=== PATIENT | female | born 1995 ===

== ENCOUNTER 2017-03-02 04:10 | Emergency (ER) | payer OTHER ==
[2017-03-02 05:14] LABS: ABSOLUTE NEUTROPHIL COUNT 6.2 K/mm3 (1.8-7.7); BASO % 0.4 % (0.2-1.0); EOS # 0.1 (0.0-0.5); EOS % 1.3 % (0.9-2.9); HEMATOCRIT 42.2 % (37.0-47.0); HEMOGLOBIN 13.3 gm/l (12.0-16.0); IMM NEUT% 0.1 % (0-1); LYMPH # 1.9 (1.0-4.8); LYMPH % 21.6 % (15-45); MEAN CELL VOLUME 85.9 fl (81.0-99.0); MEAN CORPUSCULAR HEMOGLOBIN 27.1 pg (27.0-31.0); MEAN CORPUSCULAR HGB CONC 31.5 g/dl (33.0-37.0); MEAN PLATELET VOLUME 9.2 fl (7.4-10.4); MONO # 0.4 (0.0-0.8); MONO % 4.9 % (4-12); NEUT % 71.7 % (43-75); PLATELET COUNT 383 K/mm3 (130-400); RED CELL DISTRIBUTION WIDTH 12.8 % (11.5-14.5)
[2017-03-02 05:24] LABS: ALB/GLOB RATIO 1.2 (>1.0); ALBUMIN 4.3 gm/dL (3.5-5.7); CALCIUM 9.1 mg/dL (8.6-10.3)
[2017-03-02 06:19] LABS: URINE BILIRUBIN NEGATIVE (NEGATIVE); URINE BLOOD 4+ (NEGATIVE); URINE GLUCOSE (UA) NEGATIVE (NEGATIVE); URINE LEUKOCYTE ESTERASE NEGATIVE (NEGATIVE); URINE NITRITE NEGATIVE (NEGATIVE); URINE PROTEIN TRACE (NEGATIVE); URINE UROBILINOGEN NORMAL (0-1 mg/dl)
[2017-03-02 06:23] LABS: URINE APPEARANCE HAZY; URINE COLOR YELLOW
[2017-03-02 06:28] LABS: URINE BACTERIA 0; URINE RBC >100 /hpf
[2017-03-02] MEDS ORDERED: SODIUM CHLORIDE 0.9% 1,000 ML ONE (06:39)
== END 2017-03-02 07:52 | disposition home or self-care (01) ==
LOC: ED 04:10
DX: R55 Syncope and collapse (principal); R11.0 Nausea
CPT/HCPCS: 85379; 84703; 85025; 80053; 81001; 99283 ×2; 96360; 93005; J7030